=== PATIENT | female | born 1935 | race Caucasian/White ===

== ENCOUNTER 2016-09-19 12:42 | Inpatient (IN) | payer MEDICARE, BC, OTHER ==
[~2016-09-19] VITALS: Ht 152.4 cm; Wt 63.5 kg
[2016-09-19 13:50] LABS: HEMOGLOBIN 15.5 gm/dl (12.3-15.3); RED BLOOD COUNT 5.07 M/UL (4.00-5.10); WHITE BLOOD COUNT 26.1 K/UL (4.5-11.0)
[2016-09-19 14:02] LABS: BUN/CREATININE RATIO 15 (0-10)
[2016-09-20 05:20] LABS: WHITE BLOOD COUNT 25.1 K/UL (4.5-11.0)
[2016-09-20 05:24] LABS: HEMOGLOBIN 13.2 gm/dl (12.3-15.3); RED BLOOD COUNT 4.35 M/UL (4.00-5.10)
[2016-09-20] MEDS ORDERED: ALPRAZOLAM0.5 MG PO (06:36)
[2016-09-20] MEDS ORDERED: NEXIUM20 MG PO (06:36)
[2016-09-21 05:08] LABS: HEMOGLOBIN 12.4 gm/dl (12.3-15.3); RED BLOOD COUNT 4.12 M/UL (4.00-5.10)
[2016-09-21 05:11] LABS: WHITE BLOOD COUNT 14.7 K/UL (4.5-11.0)
[2016-09-21 06:01] LABS: BUN/CREATININE RATIO 29 (0-10)
[2016-09-22 05:32] LABS: HEMOGLOBIN 13.4 gm/dl (12.3-15.3)
[2016-09-22 05:33] LABS: RED BLOOD COUNT 3.65 M/UL (4.00-5.10); WHITE BLOOD COUNT 8.4 K/UL (4.5-11.0)
[2016-09-22] MEDS ORDERED: LEVAQUIN750 MG PO (12:48)
[2016-09-22] MEDS ORDERED: MEDROL4 MG PO (12:48)
[2016-09-22] MEDS ORDERED: PROAIR HFA8.5 GM PO (12:50)
[2016-09-22] MEDS ORDERED: SYMBICORT 16010.2 GM PO (12:51)
== END 2016-09-22 14:00 | disposition home health service (06) | DRG 871 ==
LOC: ER1 12:42 → MED SURG 4 21:05 → ZEROF 21:05 → MED SURG 4 22:09
PROVIDERS: Emergency Medicine; Internal Medicine; ADMIT Internal Medicine
DX: A41.9 Sepsis, unspecified organism (principal); J18.9 Pneumonia, unspecified organism; I71.4 Abdominal aortic aneurysm, without rupture; K21.9 Gastro-esophageal reflux disease without esophagitis; R07.89 Other chest pain; M19.90 Unspecified osteoarthritis, unspecified site; F41.9 Anxiety disorder, unspecified; Z79.899 Other long term (current) drug therapy; Z88.5 Allergy status to narcotic agent; Z88.0 Allergy status to penicillin; Z90.710 Acquired absence of both cervix and uterus; Z90.49 Acquired absence of other specified parts of digestive tract; Z98.890 Other specified postprocedural states; Z80.1 Family history of malignant neoplasm of trachea, bronchus and lung; Z82.49 Family history of ischemic heart disease and other diseases of the circulatory system
CPT/HCPCS: 36415; 51702; 71010; 80048; 80053; 81001; 82550; 82553; 83605; 83690; 83874; 84484; 85025; 85610; 85730; 87040; 87086; 93005; 96374; 96375; 99285; J0696; J1956; J2405; J2930; J7050; Q0163; Q9962